=== PATIENT | female | born 1975 ===

== ENCOUNTER 2017-01-06 02:06 | Emergency (ER) | payer OTHER ==
[2017-01-06 02:06] VITALS: BMI 37.9
[2017-01-06 02:17] VITALS: BP 136/75; PULSE 69; RESP 18; TEMP 98.9; O2SAT 98
[2017-01-06] MEDS ORDERED: Albuterol-Ipratrop 3 mg / 0.5 (3 ml) UD INH STA ×2 (02:22)
[2017-01-06] MEDS ORDERED: Albuterol-Ipratrop 3 mg / 0.5 (3 ml) UD ONE (02:30)
--- NOTE | 2017-01-06 02:40 | ED PDOC ---
HPI: Asthma Time Seen by Provider: 01/06/17 02:22 Chief Complaint (Nursing): Cough, Cold, Congestion Chief Complaint (Provider): Cough/Congestion/Wheezing History Per: Patient History/Exam Limitations: no limitations Onset/Duration Of Symptoms: Days (3) Current Symptoms Are (Timing): Still Present Associated Symptoms: Cough. denies: Sputum Production, Fever Additional Complaint(s): Odin Borges is a 41 y/o female, with a past medical history of Asthma, presenting to the ER on 01/06/2017 with complaints of congestion, wheezing, and a non-productive cough x3 days. Patient reports associated chills but no fever. Patient states she saw her PMD earlier today and received a prescription for an inhaler but could not afford it. PMD- Dr. Asencio Past Medical History Reviewed: Historical Data, Nursing Documentation, Vital Signs Vital Signs: Last Vital Signs Temp 98.9 F 01/06/17 02:14 Pulse 69 01/06/17 02:14 Resp 18 01/06/17 02:14 BP 136/75 01/06/17 02:14 Pulse Ox 98 01/06/17 02:14 - Medical History PMH: Anemia, Anxiety, Asthma, Cardia Arrhythmia, Depression, Hypothyroidism, Migraine, Rheumatoid Arthritis Denies: Hyperthyroidism, Chronic Kidney Disease - Surgical History Surgical History: Endoscopy - Family History Family History: States: Unknown Family Hx - Immunization History Hx Tetanus Toxoid Vaccination: No Hx Influenza Vaccination: No Hx Pneumococcal Vaccination: No - Home Medications Home Medications: Ambulatory Orders Medication Instructions Recorded Albuterol 0.083% [Albuterol 0.083% 1 vial IH TID PRN #1 packet 01/04/17 Inhal Aliya (2.5 mg/3 ml) UD] Albuterol HFA [Ventolin HFA 90 2 puff IH [id number] PRN #1 inhaler 01/04/17 mcg/actuation (8 g)] Azithromycin [Zithromax] 250 mg PO DAILY #4 tab 01/04/17 Fluticasone Nasal [Flonase] 2 spr NS DAILY #1 spr 01/04/17 Meloxicam [Mobic] 15 mg PO DAILY 01/04/17 Nebulizer [Compact Compressor 1 dev XX PRN PRN #1 dev 01/04/17 Nebulizer] predniSONE [predniSONE Tab] 3 tab PO DAILY #12 tab 01/04/17 Albuterol HFA [Ventolin HFA 90 2 puff IH [id number] #1 puff 01/06/17 mcg/actuation (8 g)] predniSONE [predniSONE Tab] 60 mg PO DAILY #9 tab 01/06/17 - Allergies Allergies/Adverse Reactions: Allergies Allergy/AdvReac Type Severity Reaction Status Date / Time ketorolac tromethamine Allergy RASH Verified 01/04/17 15:23 [From Toradol] latex Allergy RASH Verified 01/04/17 15:23 levofloxacin [From Levaquin] Allergy RASH Verified 01/04/17 15:23 morphine Allergy RASH Verified 01/04/17 15:23 moxifloxacin HCl Allergy RASH Verified 01/04/17 15:23 [From Avelox] Review of Systems ROS Statement: Except As Marked, All Systems Reviewed And Found Negative Constitutional: Positive for: Chills. Negative for: Fever ENT: Positive for: Nose Congestion Respiratory: Positive for: Cough, Wheezing. Negative for: Sputum Physical Exam - Reviewed Nursing Documentation Reviewed: Yes Vital Signs Reviewed: Yes - Physical Exam Appears: Positive for: Non-toxic, No Acute Distress Head Exam: Positive for: ATRAUMATIC, NORMOCEPHALIC Skin: Positive for: Normal Color, Warm, Dry Eye Exam: Positive for: Normal appearance, EOMI, PERRL ENT: Positive for: Normal ENT Inspection, Pharynx Is (clear), Nasal Congestion. Negative for: Pharyngeal Erythema, Tonsillar Exudate, Tonsillar Swelling Neck: Positive for: Normal, Painless ROM, Supple Cardiovascular/Chest: Positive for: Regular Rate, Rhythm. Negative for: Murmur Respiratory: Positive for: Wheezing ((+) bilat ) Extremity: Positive for: Normal ROM, Deformity. Negative for: Swelling Neurologic/Psych: Positive for: Alert, Oriented. Negative for: Motor/Sensory Deficits - ECG O2 Sat by Pulse Oximetry: 98 Medical Decision Making Medical Decision Makin:22 Initial Impression- Asthma Initial Plan- * CXR * Albuerol 3 ml INH * Prednisone 60 mg PO * Re-eval Pt. is feeling much better, no PNA on xray, will d/c home. Return precuations given. Documented by Ana Gimenez, acting as a scribe for Burak Castro MD. All medical record entries made by the Scribe were at my direction and personally dictated by me. I have reviewed the chart and agree that the record accurately reflects my personal performance of the history, physical exam, medical decision making, and the department course for this patient. I have also personally directed, reviewed, and agree with the discharge instructions and disposition. Disposition - Clinical Impression Clinical Impression: Asthma - Patient ED Disposition Is Patient to be Admitted: No - Disposition Referrals: James Sierra MD [Primary Care Provider] - Disposition: Routine/Home Disposition Time: 03:27 Condition: STABLE Prescriptions: Albuterol HFA [Ventolin HFA 90 mcg/actuation (8 g)] 2 puff IH [id number] #1 puff predniSONE [predniSONE Tab] 60 mg PO DAILY #9 tab Instructions: Asthma (ED) Print Language: IRISH
--- NOTE | 2017-01-06 08:52 | RAD ---
HISTORY: r/o PNA COMPARISON: Comparison is made to the previous study dated 11/16/2016 TECHNIQUE: Chest PA and lateral FINDINGS: LUNGS: No active pulmonary disease. PLEURA: No significant pleural effusion identified. No pneumothorax apparent. CARDIOVASCULAR: Normal. OSSEOUS STRUCTURES: No significant abnormalities. VISUALIZED UPPER ABDOMEN: Normal. OTHER FINDINGS: None. IMPRESSION: No radiographic evidence of pneumonia.
== END 2017-01-06 03:33 | disposition home or self-care (01) ==
LOC: H.ER 02:06
DX: J45.909 Unspecified asthma, uncomplicated (principal); Z86.59 Personal history of other mental and behavioral disorders; M06.9 Rheumatoid arthritis, unspecified

== ENCOUNTER 2017-04-29 00:31 | Emergency (ER) | payer OTHER ==
[2017-04-29 00:31] VITALS: BMI 37.5
[2017-04-29 01:15] VITALS: BP 154/83; PULSE 89; RESP 17; TEMP 98.2; O2SAT 99
--- NOTE | 2017-04-29 01:40 | ED PDOC ---
Lower Extremity Pain/Injury Time Seen by Provider: 04/29/17 00:50 Chief Complaint (Nursing): Lower Extremity Problem/Injury Chief Complaint (Provider): Right knee pain History Per: Patient History/Exam Limitations: no limitations Additional Complaint(s): Patient is a 42 year old female with a past medical history of lupus and osteoarthritis and multiple medication allergies presenting to the emergency department for right knee pain that started today and which is relieved by rest. Reports that she was walking when her right knee buckled. No medications were taken for the symptoms. Denies drug, tobacco, or alcohol use. PCP: Dr. James Sierra. Past Medical History Reviewed: Historical Data, Nursing Documentation, Vital Signs Vital Signs: Last Vital Signs Temp 98.2 F 04/29/17 01:13 Pulse 89 04/29/17 01:13 Resp 17 04/29/17 01:13 BP 154/83 H 04/29/17 01:13 Pulse Ox 99 04/29/17 01:13 - Medical History PMH: Anemia, Anxiety, Arthritis, Asthma, Cardia Arrhythmia, Depression, Hypothyroidism, Migraine, Rheumatoid Arthritis Denies: Hyperthyroidism, Chronic Kidney Disease Other PMH: Lupus, osteoarthritis - Surgical History Surgical History: Endoscopy - Family History Family History: States: Unknown Family Hx - Social History Current smoker - smoking cessation education provided: No Alcohol: None Drugs: Denies - Immunization History Hx Tetanus Toxoid Vaccination: No Hx Influenza Vaccination: No Hx Pneumococcal Vaccination: No - Home Medications Home Medications: Ambulatory Orders Medication Instructions Recorded Cyclobenzaprine [Flexeril] 10 mg PO DAILY 02/08/17 Meloxicam [Mobic] 15 mg PO DAILY 02/08/17 Naproxen [Naprosyn Tab] 500 mg PO PRN PRN 02/08/17 Acyclovir [Zovirax] 400 mg PO 5XD #35 tab 02/24/17 Mineral Oil/White Petrolatum 1 applic OS BID PRN #1 tube 02/24/17 [Lacri-Lube] predniSONE [Prednisone] 60 mg PO DAILY #15 tab 02/24/17 - Allergies Allergies/Adverse Reactions: Allergies Allergy/AdvReac Type Severity Reaction Status Date / Time ketorolac tromethamine Allergy RASH Verified 02/08/17 20:34 [From Toradol] latex Allergy RASH Verified 02/08/17 20:34 levofloxacin [From Levaquin] Allergy RASH Verified 02/08/17 20:34 morphine Allergy RASH Verified 02/08/17 20:34 moxifloxacin HCl Allergy RASH Verified 02/08/17 20:34 [From Avelox] Review of Systems ROS Statement: Except As Marked, All Systems Reviewed And Found Negative Musculoskeletal: Positive for: Other (Right knee pain) Physical Exam - Reviewed Nursing Documentation Reviewed: Yes Vital Signs Reviewed: Yes - Physical Exam Appears: Positive for: Well, Non-toxic (Obese), No Acute Distress Head Exam: Positive for: ATRAUMATIC, NORMAL INSPECTION, NORMOCEPHALIC Skin: Positive for: Normal Color, Warm, Dry Eye Exam: Positive for: Normal appearance, EOMI, PERRL Cardiovascular/Chest: Positive for: Regular Rate, Rhythm. Negative for: Murmur Respiratory: Positive for: Normal Breath Sounds. Negative for: Accessory Muscle Use, Respiratory Distress Gastrointestinal/Abdominal: Positive for: Normal Exam, Soft Back: Positive for: Normal Inspection Extremity: Positive for: Pedal Edema, Other (Neurovascular intact on right lower extremity.). Negative for: Tenderness (right knee), Deformity (step off or hematoma), Swelling (right knee) Neurologic/Psych: Positive for: Alert, Oriented - ECG O2 Sat by Pulse Oximetry: 99 (RA) Pulse Ox Interpretation: Normal Medical Decision Making Medical Decision Making: Time: 01:29 Initial Plan: -Labs -Right Knee X-Ray -Tylenol 650 mg PO -Reevaluation 03:24 Right knee x-ray was reviewed and found to be negative. Patient is referred to orthopedist for further evaluation of her ligaments with outpt MRI. Finn-wrap bandages were applied and secured to her knee. Upon provider reevaluation patient is feeling better, is medically stable, and requires no further treatment in the ED at this time. Counseling was provided and all questions were answered regarding diagnosis and need for follow up with Dr. Ayleen Coley. There is agreement to discharge plan. Return if symptoms persist or worsen. Scribe Attestation: Documented by Lilly Hinton, acting as a scribe for Lynn Martel MD Provider Scribe Attestation: All medical record entries made by the Scribe were at my direction and personally dictated by me. I have reviewed the chart and agree that the record accurately reflects my personal performance of the history, physical exam, medical decision making, and the department course for this patient. I have also personally directed, reviewed, and agree with the discharge instructions and disposition. Disposition - Clinical Impression Clinical Impression: Knee pain - Patient ED Disposition Is Patient to be Admitted: No Doctor Will See Patient In The: Office Counseled Patient/Family Regarding: Studies Performed, Diagnosis, Need For Followup - Disposition Referrals: [facility] [Outside] Ayleen Coley MD [Staff Provider] - Disposition: Routine/Home Disposition Time: 03:00 Condition: IMPROVED Additional Instructions: follow up with orthopedist for further management return to the ED with any worsening or concerning symptoms take tylenol for pain Instructions: Knee Pain (ED) Forms: [employer] (Maltese)
--- NOTE | 2017-04-29 11:42 | RAD ---
PROCEDURE: Right Knee Radiographs. HISTORY: pain COMPARISON: None. FINDINGS: BONES: Normal. No acute fracture. JOINTS: Normal. No osteoarthritis. JOINT EFFUSION: There is a small suprapatellar joint effusion. OTHER FINDINGS: None. IMPRESSION: No acute fracture or dislocation. Small suprapatellar joint effusion.
== END 2017-04-29 03:33 | disposition home or self-care (01) ==
LOC: H.ER 00:31
DX: M25.561 Pain in right knee (principal); F41.9 Anxiety disorder, unspecified; M06.9 Rheumatoid arthritis, unspecified; M32.9 Systemic lupus erythematosus, unspecified

== ENCOUNTER 2017-09-20 18:38 | Emergency (ER) | payer MEDICAID, OTHER ==
[2017-09-20 18:38] VITALS: BMI 37.5
[2017-09-20 18:49] VITALS: BP 158/75; RESP 16; TEMP 98.8; O2SAT 99
[2017-09-20] MEDS ORDERED: Sodium Chloride 0.9% 1,000 ML IV STA (19:20)
--- NOTE | 2017-09-20 19:26 | ED PDOC ---
HPI: Headache Time Seen by Provider: 09/20/17 19:15 Chief Complaint (Nursing): Headache Chief Complaint (Provider): Headache History Per: Patient History/Exam Limitations: no limitations Current Symptoms Are (Timing): Still Present Additional Complaint(s): 42 y/o female with past medical history of migraine and left sided [place] palsy presented to the ED complaining of headache and facial pain since morning. Patient states that she noticed shooting pain in left sided face. Patient also noted dizziness last night but denies any weakness or visual changes. She is unsure if this is migraine but is concerned as her uncle recently had a stroke. Denies any further medical complaints. PMD: James Sierra MD Past Medical History Reviewed: Historical Data, Nursing Documentation, Vital Signs Vital Signs: Last Vital Signs Temp 98.8 F 09/20/17 18:47 Pulse 99 H 09/20/17 18:47 Resp 16 09/20/17 18:47 BP 158/75 H 09/20/17 18:47 Pulse Ox 99 09/20/17 18:47 - Medical History PMH: Anemia, Anxiety, Arthritis, Asthma, Cardia Arrhythmia, Depression, Hypothyroidism, Migraine, Rheumatoid Arthritis Denies: Hyperthyroidism, Chronic Kidney Disease - Surgical History Surgical History: Endoscopy - Family History Family History: States: Unknown Family Hx - Immunization History Hx Tetanus Toxoid Vaccination: No Hx Influenza Vaccination: No Hx Pneumococcal Vaccination: No - Home Medications Home Medications: Ambulatory Orders Medication Instructions Recorded Cyclobenzaprine [Flexeril] 10 mg PO DAILY 02/08/17 Meloxicam [Mobic] 15 mg PO DAILY 02/08/17 Naproxen [Naprosyn Tab] 500 mg PO PRN PRN 02/08/17 Acyclovir [Zovirax] 400 mg PO 5XD #35 tab 02/24/17 Mineral Oil/White Petrolatum 1 applic OS BID PRN #1 tube 02/24/17 [Lacri-Lube] predniSONE [Prednisone] 60 mg PO DAILY #15 tab 02/24/17 - Allergies Allergies/Adverse Reactions: Allergies Allergy/AdvReac Type Severity Reaction Status Date / Time ketorolac tromethamine Allergy RASH Verified 09/20/17 18:47 [From Toradol] latex Allergy RASH Verified 09/20/17 18:47 levofloxacin [From Levaquin] Allergy RASH Verified 09/20/17 18:47 morphine Allergy RASH Verified 09/20/17 18:47 moxifloxacin HCl Allergy RASH Verified 09/20/17 18:47 [From Avelox] Review of Systems ROS Statement: Except As Marked, All Systems Reviewed And Found Negative (As per HPI, otherwise negative) Eyes: Negative for: Vision Change Neurological: Positive for: Headache, Dizziness, Other (facial pain). Negative for: Weakness Physical Exam - Reviewed Nursing Documentation Reviewed: Yes Vital Signs Reviewed: Yes - Physical Exam Appears: Positive for: Non-toxic, Uncomfortable Head Exam: Positive for: ATRAUMATIC, NORMAL INSPECTION, NORMOCEPHALIC Skin: Positive for: Normal Color, Warm, Dry Eye Exam: Positive for: Normal appearance, EOMI (Has pain with movement of eyes) , PERRL ENT: Positive for: Normal ENT Inspection Neck: Positive for: Normal, Painless ROM, Supple Cardiovascular/Chest: Positive for: Regular Rate, Rhythm. Negative for: Murmur Respiratory: Positive for: Normal Breath Sounds. Negative for: Accessory Muscle Use, Respiratory Distress Gastrointestinal/Abdominal: Positive for: Normal Exam, Bowel Sounds, Soft Extremity: Positive for: Other (5/5 upper extremity and fingers are intact). Negative for: Normal ROM (Decreased strength with left leg extension and right leg also feels weaker), Deformity Neurologic/Psych: Positive for: Alert, managing partner II-XII, Oriented (x3), Other (Non tender by temporal region of the face). Negative for: Facial Droop - Laboratory Results Result Diagrams: 09/20/17 19:58 09/20/17 19:58 - ECG O2 Sat by Pulse Oximetry: 99 - Progress ED Course And Treament: NS 1 liter 500 ml per hour Reglan 10 mg iv x 1 dose benadryl 25mg IM x 1 dose for anxiety head ct: IMPRESSION: 1. No definite acute intracranial abnormality. Thank you for allowing us to participate in the care of your patient. Dictated and Authenticated by: Dante Johnson MD Medical Decision Making Medical Decision Making: Time: 18:46 Plan: CT head w/o contrast EKG BMP Magnesium Urine CBC w/ differential Metoclopramide 10mg IVP Sodium Chloride 1L IV EKG documentation Scribe Attestation: Documented by Tello Polanco acting as a scribe for PA. JIMENEZ Jackson Scribjuan Attestation: All medical record entries made by the Scribe were at my direction and personally dictated by me. I have reviewed the chart and agree that the record accurately reflects my personal performance of the history, physical exam, medical decision making, and the department course for this patient. I have also personally directed, reviewed, and agree with the discharge instructions and disposition. Disposition - Clinical Impression Clinical Impression: Headache - Patient ED Disposition Is Patient to be Admitted: No - Disposition Disposition: Routine/Home Disposition Time: 22:09 Condition: FAIR Instructions: Migraine Headache (ED) Forms: [employer] (Irish)
[2017-09-20 19:38] VITALS: PULSE 91
[2017-09-20 20:10] LABS: BASO % 0.3 % (0.0-2.0); EOS # 0.1 K/uL (0.0-0.7); EOS % 0.7 % (0.0-4.0); HEMOGLOBIN 11.8 g/dL (12.0-16.0); LYMPH % 20.5 % (20.0-40.0); MEAN CELL VOLUME 73.6 fl (81.0-99.0); MEAN CORPUSCULAR HEMOGLOBIN 23.4 pg (27.0-31.0); MEAN CORPUSCULAR HGB CONC 31.8 g/dL (33.0-37.0); MEAN PLATELET VOLUME 9.1 fl (7.2-11.7); MONO # 0.7 K/uL (0.0-0.8); MONO % 6.9 % (0.0-10.0); NEUT % 71.6 % (50.0-75.0); NRBC % 0.1 % (0.0-0.0); RBC 5.02 Mil/uL (3.80-5.20); RED CELL DISTRIBUTION WIDTH 16.4 % (11.5-14.5); WHITE BLOOD COUNT 9.8 K/uL (4.8-10.8)
[2017-09-20 20:18] LABS: BLOOD UREA NITROGEN 15 mg/dl (7-17); CALCIUM 9.3 mg/dL (8.4-10.2); GFR AFRICAN-AMERICAN > 60; GFR NON-AFRICAN AMERICAN > 60; MAGNESIUM 1.9 MG/DL (1.6-2.3)
--- NOTE | 2017-09-20 21:30 | CT ---
EXAM: CT Head Without Intravenous Contrast CLINICAL HISTORY: 42 years old, female; Pain; Headache; Other: Lopez's lt >rt; Patient HX: Dm HTN; Additional info: Headache/face pain TECHNIQUE: Axial computed tomography images of the head/brain without intravenous contrast. All CT scans at this facility use one or more dose reduction techniques, viz.: automated exposure control; ma/kV adjustment per patient size (including targeted exams where dose is matched to indication; i.e. head); or iterative reconstruction technique. Coronal and sagittal reformatted images were created and reviewed. COMPARISON: CT - HEAD W/O CONTRAST 2015-08-08 02:12 FINDINGS: Brain: No intracranial hemorrhage. No mass. No definite edema. Ventricles: No hydrocephalus. Bones/joints: No acute fracture. Soft tissues: Unremarkable. Sinuses: No acute sinusitis. Mastoid air cells: No mastoid effusion. Orbits: Unremarkable as visualized. IMPRESSION: 1. No definite acute intracranial abnormality.
[2017-09-20] MEDS: DiphenhydrAMINE 50 mg/ml Inj IVP STA ×2 (21:54→22:05)
[2017-09-20] MEDS ORDERED: DiphenhydrAMINE 50 mg/ml Inj IM STA (22:03)
--- NOTE | 2017-09-21 08:16 | CARD ---
APPROVED REPORT EKG Measurement Heart [id number] <Conclusion> Normal sinus rhythm Normal ECG
== END 2017-09-20 21:35 | disposition home or self-care (01) ==
LOC: H.ER 18:38
DX: R51 Headache (principal); R42 Dizziness and giddiness; E03.9 Hypothyroidism, unspecified; E11.9 Type 2 diabetes mellitus without complications; F32.9 Major depressive disorder, single episode, unspecified; F41.9 Anxiety disorder, unspecified; I10 Essential (primary) hypertension
CPT/HCPCS: 70450; 80048; 81025; 83735; 85025; 93005; 96372; 96374; 99284; J1200; J2765; J7040

== ENCOUNTER 2018-03-10 23:02 | Emergency (ER) | payer MEDICAID, OTHER ==
[2018-03-10 23:03] VITALS: BMI 40.4
--- NOTE | 2018-03-10 23:39 | ED PDOC ---
HPI: Female Pain Time Seen by Provider: 03/10/18 23:26 Chief Complaint (Nursing): Female Genitourinary Chief Complaint (Provider): dysuria History Per: Patient History/Exam Limitations: no limitations Onset/Duration Of Symptoms: Days (1) Current Symptoms Are (Timing): Still Present Quality Of Discomfort: Burning, "Pain" Associated Symptoms: Urinary Symptoms Additional Complaint(s): 43 y/o female presents for evaluation of dysuria x 1 day. Associated suprapubic pressure. Notes history of irregular menstrual periods, finished yesterday. Denies fever, nausea/vomiting, back pain, hematuria, vaginal bleeding /discharge. Patient states she is sexually active with one partner, does not use protection Past Medical History Reviewed: Historical Data, Nursing Documentation, Vital Signs Vital Signs: Last Vital Signs Temp 98.3 F 03/10/18 23:08 Pulse 88 03/10/18 23:08 Resp 16 03/10/18 23:08 BP 136/78 03/10/18 23:08 Pulse Ox 100 03/10/18 23:08 - Medical History PMH: Anemia, Anxiety, Arthritis, Asthma, Cardia Arrhythmia, Depression, Hypothyroidism, Migraine, Rheumatoid Arthritis Denies: Hyperthyroidism, Chronic Kidney Disease - Surgical History Surgical History: Endoscopy - Family History Family History: States: Unknown Family Hx - Immunization History Hx Tetanus Toxoid Vaccination: No Hx Influenza Vaccination: No Hx Pneumococcal Vaccination: No - Home Medications Home Medications: Ambulatory Orders Medication Instructions Recorded Cyclobenzaprine [Flexeril] 10 mg PO DAILY 02/08/17 Naproxen [Naprosyn Tab] 500 mg PO PRN PRN 02/08/17 Amoxicillin 875 mg PO BID #14 tablet 01/20/18 Ferrous Sulfate [Feosol] 1 tab PO DAILY 01/20/18 Phenazopyridine HCl [Pyridium] 100 mg PO TID PRN #5 tab 03/11/18 - Allergies Allergies/Adverse Reactions: Allergies Allergy/AdvReac Type Severity Reaction Status Date / Time ketorolac tromethamine Allergy RASH Verified 11/14/17 07:46 [From Toradol] latex Allergy RASH Verified 11/14/17 07:46 levofloxacin [From Levaquin] Allergy RASH Verified 11/14/17 07:46 morphine Allergy RASH Verified 11/14/17 07:46 moxifloxacin HCl Allergy RASH Verified 11/14/17 07:46 [From Avelox] Review of Systems ROS Statement: Except As Marked, All Systems Reviewed And Found Negative Genitourinary Female: Positive for: Dysuria, Frequency, Pelvic Pain Physical Exam - Reviewed Nursing Documentation Reviewed: Yes Vital Signs Reviewed: Yes - Physical Exam Appears: Positive for: Well, Non-toxic, No Acute Distress Head Exam: Positive for: ATRAUMATIC, NORMAL INSPECTION, NORMOCEPHALIC Skin: Positive for: Normal Color Eye Exam: Positive for: Normal appearance ENT: Positive for: Normal ENT Inspection Cardiovascular/Chest: Positive for: Regular Rate, Rhythm Respiratory: Positive for: Normal Breath Sounds Gastrointestinal/Abdominal: Positive for: Tenderness (mild suprapubic discomfort ) Back: Positive for: Normal Inspection Extremity: Positive for: Normal ROM Neurologic/Psych: Positive for: Alert, Oriented - ECG O2 Sat by Pulse Oximetry: 100 - Progress ED Course And Treament: u/a, C&S, gc/chlamydia, bladder scan 170 Patient refusing pelvic exam; states she will go to her doctor tomorrow to have one done. Patient requesting prophylactic treatment for STD's. Rocephin IM, zithromax PO ordered Patient educated on findings, pyridium prescribed for urinary symptoms Return precautions given Disposition - Clinical Impression Clinical Impression: Dysuria - Patient ED Disposition Is Patient to be Admitted: No Counseled Patient/Family Regarding: Studies Performed, Diagnosis, Need For Followup, Rx Given - Disposition Referrals: James Sierra MD [Primary Care Provider] - Disposition: Routine/Home Disposition Time: 02:05 Condition: IMPROVED Prescriptions: Phenazopyridine HCl [Pyridium] 100 mg PO TID PRN #5 tab PRN Reason: Urinary Discomt Instructions: Dysuria, Adult (DC) Forms: [employer] (Armenian)
[2018-03-11 00:15] LABS: SQUAMOUS EPITHIAL 2 /hpf (0-5); URINE BILIRUBIN NEGATIVE (NEGATIVE); URINE BLOOD SMALL (NEGATIVE); URINE CLARITY SLIGHTY-CLOUDY (Clear); URINE COLOR YELLOW (YELLOW); URINE GLUCOSE (UA) NEG (Normal); URINE LEUKOCYTE ESTERASE NEG Leu/uL (Negative); URINE PROTEIN NEGATIVE (NEGATIVE); URINE UROBILINOGEN 0.2-1.0 mg/dL (0.2-1.0)
[2018-03-11] MEDS: cefTRIAXone (Rocephin) 250 mg Inj IM ONE (01:20)
[2018-03-11 02:24] VITALS: BP 124/69; PULSE 77; RESP 18; TEMP 98.2; O2SAT 98
== END 2018-03-11 02:25 | disposition home or self-care (01) ==
LOC: H.ER 23:02
DX: R30.0 Dysuria (principal); E03.9 Hypothyroidism, unspecified; F32.9 Major depressive disorder, single episode, unspecified; F41.9 Anxiety disorder, unspecified; J45.909 Unspecified asthma, uncomplicated; M06.9 Rheumatoid arthritis, unspecified
CPT/HCPCS: 81003; 81025; 87086; 87491; 87591; 96372; 99283; J0696

== ENCOUNTER 2018-05-18 23:16 | Emergency (ER) | payer MEDICAID ==
[2018-05-18 23:17] VITALS: BMI 40.4
[2018-05-19 00:07] VITALS: TEMP 98
[2018-05-19 01:49] LABS: BASO # 0.1 K/uL (0.0-0.2); BASO % 1.3 % (0.0-2.0); EOS # 0.1 K/uL (0.0-0.7); EOS % 1.6 % (0.0-4.0); HEMOGLOBIN 9.9 g/dL (12.0-16.0); LYMPH # 2.3 K/uL (1.0-4.3); LYMPH % 30.4 % (20.0-40.0); MEAN CELL VOLUME 70.9 fl (81.0-99.0); MEAN CORPUSCULAR HGB CONC 31.1 g/dL (33.0-37.0); MEAN PLATELET VOLUME 9.3 fl (7.2-11.7); MONO # 0.7 K/uL (0.0-0.8); MONO % 9.1 % (0.0-10.0); NEUT # 4.3 K/uL (1.8-7.0); NEUT % 57.6 % (50.0-75.0); RBC 4.5 Mil/uL (3.80-5.20); RED CELL DISTRIBUTION WIDTH 15.8 % (11.5-14.5); WHITE BLOOD COUNT 7.5 K/uL (4.8-10.8)
--- NOTE | 2018-05-19 01:49 | ED PDOC ---
Syncope/Near Syncope/Dizziness Time Seen by Provider: 05/18/18 23:42 Chief Complaint (Nursing): Syncope Chief Complaint (Provider): Syncope History Per: Patient History/Exam Limitations: no limitations Onset/Duration Of Symptoms: Hrs Current Symptoms Are (Timing): Still Present Additional Complaint(s): Odin Borges is a 43 year old female with a past medical history of anemia and Lupus who is presenting to the ED for evaluation of syncopal event, onset prior to arrival. Patient states that she was dizzy, fell and hit her head. She denies any antecedent chest pain, headache, nausea, or vomiting but does complain of headaches after syncopal event. Patient reports that she is uncertain about the duration of loss of consciousness and admits that she lives in [place] but chose to drive here because she didn't want to go to her local emergency room. She offers no other medical complaints at this time. PMD: James Sierra Past Medical History Reviewed: Historical Data, Nursing Documentation, Vital Signs Vital Signs: Last Vital Signs Temp 98.0 F 05/19/18 00:06 Pulse 91 H 05/19/18 00:06 Resp 1 L 05/19/18 00:06 BP 117/79 05/19/18 00:06 Pulse Ox 98 05/19/18 00:06 - Medical History PMH: Anemia, Anxiety, Arthritis, Asthma, Cardia Arrhythmia, Depression, Hypothyroidism, Migraine, Rheumatoid Arthritis Denies: Hyperthyroidism, Chronic Kidney Disease Other PMH: Lupus - Surgical History Surgical History: Endoscopy - Family History Family History: States: Unknown Family Hx - Social History Current smoker - smoking cessation education provided: No Alcohol: None Drugs: Denies - Immunization History Hx Tetanus Toxoid Vaccination: No Hx Influenza Vaccination: No Hx Pneumococcal Vaccination: No - Home Medications Home Medications: Ambulatory Orders Medication Instructions Recorded Cyclobenzaprine [Flexeril] 10 mg PO DAILY 02/08/17 Naproxen [Naprosyn Tab] 500 mg PO PRN PRN 02/08/17 Amoxicillin 875 mg PO BID #14 tablet 01/20/18 Ferrous Sulfate [Feosol] 1 tab PO DAILY 01/20/18 Phenazopyridine HCl [Pyridium] 100 mg PO TID PRN #5 tab 03/11/18 - Allergies Allergies/Adverse Reactions: Allergies Allergy/AdvReac Type Severity Reaction Status Date / Time ketorolac tromethamine Allergy RASH Verified 05/18/18 23:26 [From Toradol] latex Allergy RASH Verified 05/18/18 23:26 levofloxacin [From Levaquin] Allergy RASH Verified 05/18/18 23:26 morphine Allergy RASH Verified 05/18/18 23:26 moxifloxacin HCl Allergy RASH Verified 05/18/18 23:26 [From Avelox] Review of Systems ROS Statement: Except As Marked, All Systems Reviewed And Found Negative Cardiovascular: Negative for: Chest Pain Gastrointestinal: Negative for: Nausea, Vomiting Neurological: Positive for: Headache, Dizziness, Other (syncope, loss of consciousness) Physical Exam - Reviewed Nursing Documentation Reviewed: Yes Vital Signs Reviewed: Yes - Physical Exam Appears: Positive for: Non-toxic, No Acute Distress Head Exam: Positive for: ATRAUMATIC, NORMAL INSPECTION, NORMOCEPHALIC Skin: Positive for: Normal Color, Warm, DRY Eye Exam: Positive for: EOMI, Normal appearance, PERRL ENT: Positive for: Normal ENT Inspection Neck: Positive for: Normal, Painless ROM Cardiovascular/Chest: Positive for: Regular Rate, Rhythm. Negative for: Murmur Respiratory: Positive for: Normal Breath Sounds. Negative for: Respiratory Distress Gastrointestinal/Abdominal: Positive for: Normal Exam, Soft. Negative for: Tenderness Back: Positive for: Normal Inspection. Negative for: L CVA Tenderness, R CVA Tenderness Extremity: Positive for: Normal ROM. Negative for: Deformity, Swelling Neurologic/Psych: Positive for: Alert, Oriented. Negative for: Motor/Sensory Deficits - Laboratory Results Result Diagrams: 05/19/18 01:35 05/19/18 01:35 - ECG O2 Sat by Pulse Oximetry: 98 (RA) Pulse Ox Interpretation: Normal Medical Decision Making Medical Decision Making: Time: 1:19 Impression: 43 year old female with headache in setting of syncopal event Plan: --CT Head --EKG --CMP --Drug Screen --ED Urine --ED Urine Dipstick --CBC --Urinalysis CT Head: FINDINGS: Brain: Mild volume loss.No hemorrhage. No significant white matter disease. No edema. Ventricles: Normal. No ventriculomegaly. Bones/joints: Normal. No acute fracture. Sinuses: Normal as visualized. No acute sinusitis. Mastoid air cells: Normal as visualized. No mastoid effusion. Soft tissues: Normal. IMPRESSION: No acute findings. 2:55 Patient reports marketed improvement in symptoms. Upon provider reevaluation patient is feeling better, is medically stable, and requires no further treatment in the ED at this time. Patient will be discharged. Counseling was provided and all questions were answered regarding diagnosis and need for follow up with PMD. There is agreement to discharge plan. Return if symptoms persist or worsen. Scribe Attestation: Documented by, Humera Kaplan acting as a scribe for Robles Mcintosh MD. Provider Scribe Attestation: All medical record entries made by the Scribe were at my direction and personally dictated by me. I have reviewed the chart and agree that the record accurately reflects my personal performance of the history, physical exam, medical decision making, and the department course for this patient. I have also personally directed, reviewed, and agree with the discharge instructions and disposition. Disposition - Clinical Impression Clinical Impression: Syncope, Head injury - Patient ED Disposition Is Patient to be Admitted: No - Disposition Disposition: Routine/Home Disposition Time: 02:57 Condition: IMPROVED Instructions: Syncope (Fainting) Forms: [employer] (Romanian) Print Language: CHINESE
[2018-05-19 02:04] LABS: ALB/GLOB RATIO 0.9 (1.0-2.1); ALBUMIN 4.1 g/dL (3.5-5.0); ALT/SGPT 27 U/L (9-52); AST/SGOT 36 U/L (14-36); BLOOD UREA NITROGEN 14 mg/dl (7-17); CALCIUM 8.6 mg/dL (8.4-10.2); GFR NON-AFRICAN AMERICAN > 60
[2018-05-19 02:25] LABS: BENZODIAZEPINES, UR NEGATIVE (NEGATIVE); OPIATES, UR NEGATIVE (NEGATIVE)
[2018-05-19 02:34] LABS: BARBITURATES, UR POSITIVE (NEGATIVE); PHENCYCLIDINE, UR NEGATIVE (NEGATIVE)
[2018-05-19 02:38] LABS: SQUAMOUS EPITHIAL 2 /hpf (0-5); URINE BILIRUBIN NEGATIVE (NEGATIVE); URINE BLOOD NEGATIVE (NEGATIVE); URINE CLARITY SLIGHTY-CLOUDY (Clear); URINE COLOR YELLOW (YELLOW); URINE GLUCOSE (UA) NEG (Normal); URINE HYALINE CAST 0-2 /hpf (0-2); URINE LEUKOCYTE ESTERASE NEG Leu/uL (Negative); URINE PROTEIN 30 mg/dL (NEGATIVE)
[2018-05-19 03:03] VITALS: BP 113/76; PULSE 77; RESP 18; O2SAT 100
--- NOTE | 2018-05-19 08:20 | CARD ---
APPROVED REPORT Date of service: 05/18/2018 <Conclusion> Normal sinus rhythm Nonspecific ST abnormality Abnormal ECG
--- NOTE | 2018-05-19 08:42 | CT ---
Date of service: 05/19/2018 PROCEDURE: CT HEAD WITHOUT CONTRAST. HISTORY: headache COMPARISON: 09/20/2017 TECHNIQUE: Axial computed tomography images were obtained through the head/brain without intravenous contrast. Radiation dose: Total exam DLP = 814 mGy-cm. This CT exam was performed using one or more of the following dose reduction techniques: Automated exposure control, adjustment of the mA and/or kV according to patient size, and/or use of iterative reconstruction technique. FINDINGS: HEMORRHAGE: No intracranial hemorrhage. BRAIN: No mass effect or edema. No atrophy or chronic microvascular ischemic changes. VENTRICLES: Unremarkable. No hydrocephalus. CALVARIUM: Unremarkable. PARANASAL SINUSES: Unremarkable as visualized. No significant inflammatory changes. MASTOID AIR CELLS: Unremarkable as visualized. No inflammatory changes. OTHER FINDINGS: None. IMPRESSION: Normal CT of the Head. Concordant results (preliminary interpretation) provided by [facility].
== END 2018-05-19 03:15 | disposition home or self-care (01) ==
LOC: H.ER 23:16
DX: R55 Syncope and collapse (principal); S09.90XA Unspecified injury of head, initial encounter; Z86.59 Personal history of other mental and behavioral disorders; J45.909 Unspecified asthma, uncomplicated; M32.9 Systemic lupus erythematosus, unspecified; M06.9 Rheumatoid arthritis, unspecified

== ENCOUNTER 2018-05-26 01:25 | Emergency (ER) | payer MEDICAID ==
[2018-05-26 01:26] VITALS: BMI 40.4
[2018-05-26 01:57] VITALS: O2SAT 100
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
[2018-05-26 05:27] VITALS: BP 113/59; RESP 18; TEMP 99.2
[2018-05-26 05:33] VITALS: PULSE 97
--- NOTE | 2018-05-26 08:58 | RAD ---
Date of service: 05/26/2018 PROCEDURE: Cervical Spine Radiographs. HISTORY: Pain. COMPARISON: None. FINDINGS: BONES: Alignment maintained. No fracture. Dens Intact. Mild anterior C5-6 spondylosis DISC SPACES: C6-7 narrowing SOFT TISSUES: Normal. No prevertebral soft tissue swelling. OTHER FINDINGS: None. IMPRESSION: No fracture or lytic lesion appreciated. Cervical spondylosis and degenerative disc disease -as above
== END 2018-05-26 06:05 | disposition home or self-care (01) ==
LOC: H.ER 01:25
DX: S16.1XXA Strain of muscle, fascia and tendon at neck level, initial encounter (principal); Z86.59 Personal history of other mental and behavioral disorders; J45.909 Unspecified asthma, uncomplicated; M06.9 Rheumatoid arthritis, unspecified; E03.9 Hypothyroidism, unspecified; Y04.8XXA Assault by other bodily force, initial encounter